=== PATIENT | male | born 1985 | race African-American/Black ===

== ENCOUNTER 2016-07-10 14:39 | Emergency (ER) | payer SELFPAY ==
[~2016-07-10] VITALS: Ht 180.3 cm; Wt 95.0 kg
[2016-07-10] MEDS ORDERED: KETOROLAC 60MG/2ML VIAL IM ONE (16:00)
[2016-07-10 16:09] VITALS: BP 140/62
== END 2016-07-10 16:13 | disposition home or self-care (01) ==
LOC: ER 14:43
DX: S00.83XA Contusion of other part of head, initial encounter (principal); S00.93XA Contusion of unspecified part of head, initial encounter; S00.81XA Abrasion of other part of head, initial encounter; Z87.828 Personal history of other (healed) physical injury and trauma; W01.0XXA Fall on same level from slipping, tripping and stumbling without subsequent striking against object, initial encounter; Y93.89 Activity, other specified; Y92.89 Other specified places as the place of occurrence of the external cause
CPT/HCPCS: 96372; 99283; J1885